=== PATIENT | female | born 1985 | race Hispanic/Latino ===

== ENCOUNTER 2021-01-28 15:16 | Emergency (ER) | payer SELFPAY ==
[2021-01-28 23:28] VITALS: BP 115/77
== END 2021-01-29 00:30 | disposition home or self-care (01) ==
LOC: ED 15:16
DX: N72 Inflammatory disease of cervix uteri (principal); N83.209 Unspecified ovarian cyst, unspecified side; R10.9 Unspecified abdominal pain; Z88.0 Allergy status to penicillin; Z79.899 Other long term (current) drug therapy; Z98.890 Other specified postprocedural states
CPT/HCPCS: 36415; 74177; 76856; 80053; 81001; 81025; 83690; 83735; 85025; 87210; 87591; 96372; 96374; 96375; 99284; J0696; J2270; J2405; Q9967